=== PATIENT | female | born 1965 | race American Indian/Alaskan Native ===

== ENCOUNTER 2017-05-01 08:14 | Emergency (ER) | payer OTHER ==
[2017-05-01 09:05] VITALS: BP 149/86
--- NOTE | 2017-05-01 10:12 | Emergency Department Report ---
HPI - General Chief Complaint: Skin Rash Time Seen by Provider: 05/01/17 09:44 - HPI HPI: She is a 51-year-old female who presents with 3 other members of her home who presents to ED complaining of seen bedbugs in the periods at home 2 days ago. Patient states they have all been exposed to bedbugs and has some bites on the arms and legs. Patient states that there have gotten all sheets and beds turned from the house. She denies fevers or chills/nausea/vomiting or any other problem. ED Past Medical Hx - Past Medical History Previous Medical History?: Yes Hx Hypertension: Yes Hx Diabetes: Yes - Surgical History Past Surgical History?: Yes Additional Surgical History: Gastric bypass - Medications Home Medications: Home Medications Medication Instructions Recorded Confirmed Last Taken Type Hydrocortisone/Aloe Vera 1 applic TP TID #1 tube 05/01/17 Unknown Rx [Cortizone-10 1% Creme] Selenium Sulfide 1 applic TP DAILY #1 shampoo 05/01/17 Unknown Rx diphenhydrAMINE [Benadryl CAP] 25 mg PO QHS PRN #20 capsule 05/01/17 Unknown Rx ED Review of Systems ROS: Stated complaint: BED BUGS Other details as noted in HPI Constitutional: denies: chills, fever Eyes: denies: eye pain, eye discharge, vision change ENT: denies: ear pain, throat pain Respiratory: denies: cough, shortness of breath, wheezing Cardiovascular: denies: chest pain, palpitations Endocrine: no symptoms reported Gastrointestinal: denies: abdominal pain, nausea, diarrhea Genitourinary: denies: urgency, dysuria, discharge Musculoskeletal: denies: back pain, joint swelling, arthralgia Skin: pruritus. denies: rash, lesions Neurological: denies: headache, weakness, numbness, paresthesias, confusion Psychiatric: denies: anxiety, depression Hematological/Lymphatic: denies: easy bleeding, easy bruising Physical Exam - Physical Exam Vital Signs: Vital Signs 05/01/17 08:59 Temperature 98.1 F Pulse Rate 72 Respiratory 18 Rate Blood Pressure 149/86 O2 Sat by Pulse 99 Oximetry Physical Exam: GENERAL: Alert and oriented x3, no apparent distress, Normal Gait, atraumatic. HEAD: Head is normocephalic and a-traumatic. EYES: Extra ocular muscles are intact. Pupils are equal, round, and reactive to light and accommodation. NECK: Supple. Non edematous, No lymphadenopathy or thyromegaly. LUNGS: Symetrical with respiration, No wheezing, no rales or crackles, CTAB. HEART: S1, S2 present, regular rate and rhythm without murmur, no rubs, no gallops. Non tender to palpation EXTREMITIES/MUSCULOSKELETAL: No cyanosis, clubbing, rash, lesions or edema. NEUROLOGIC: The patient is cooperative with no focal neurologic deficits. SKIN: Multiple generalized moderately healed bite bates consistent with insect bites on extremities. Warm and dry, No lesions, No ulceration or induration present. ED Course Vital Signs 05/01/17 08:59 Temperature 98.1 F Pulse Rate 72 Respiratory 18 Rate Blood Pressure 149/86 O2 Sat by Pulse 99 Oximetry ED Medical Decision Making - Medical Decision Making 51-year-old female presents home infested of bedbugs ED course: Discussed with patient and call housemates to use medication prescriptions as prescribed. Discussed with a all members of the household to follow up with primary care physician in 3-5 days. This patient to get rid of all the bedding and beds washed the patient is in the house Discussed with patient's to have the house seeming gated and region of the bedbugs before going back in. Critical care attestation.: If time is entered above; I have spent that time in minutes in the direct care of this critically ill patient, excluding procedure time. ED Disposition Clinical Impression: Infestation by bed bug Disposition: DC-01 TO HOME OR SELFCARE Is pt being admited?: No Does the pt Need Aspirin: No Condition: Stable Instructions: Insect Bite or Sting (ED) Prescriptions: diphenhydrAMINE [Benadryl CAP] 25 mg PO QHS PRN #20 capsule PRN Reason: Itching Hydrocortisone/Aloe Vera [Cortizone-10 1% Creme] 1 applic TP TID #1 tube Selenium Sulfide 1 applic TP DAILY #1 shampoo Referrals: PRIMARY CARE, [Primary Care Provider] - 3-5 Days [facility] [Outside] - 3-5 Days [facility] [Outside] - 3-5 Days [facility] [Outside] - 3-5 Days Forms: Accompanied Note, Work/School Release Form(ED) Time of Disposition: 10:21
== END 2017-05-01 10:29 | disposition home or self-care (01) ==
LOC: ED 08:14
DX: S40.861A Insect bite (nonvenomous) of right upper arm, initial encounter (principal); S40.862A Insect bite (nonvenomous) of left upper arm, initial encounter; S80.862A Insect bite (nonvenomous), left lower leg, initial encounter; S80.861A Insect bite (nonvenomous), right lower leg, initial encounter; I10 Essential (primary) hypertension; E11.9 Type 2 diabetes mellitus without complications; W57.XXXA Bitten or stung by nonvenomous insect and other nonvenomous arthropods, initial encounter; Y93.89 Activity, other specified; Y92.89 Other specified places as the place of occurrence of the external cause; Y99.8 Other external cause status
CPT/HCPCS: 99282

== ENCOUNTER 2017-09-20 21:59 | Observation (INO) | payer MEDICAID, OTHER ==
[2017-09-20] MEDS ORDERED: ASPIRIN PO ONE (22:08)
[2017-09-20 22:46] LABS: Hematocrit 29.6 % (30.3-42.9); Hemoglobin 9.1 gm/dl (10.1-14.3); Mean Corpuscular HGB Conc 31 % (30-34); Mean Corpuscular Hemoglobin 22 pg (28-32); Mean Corpuscular Volume 71 fl (79-97); Platelet Count 224 K/mm3 (140-440); Red Blood Count 4.18 M/mm3 (3.65-5.03); Red Cell Distribution Width 17.7 % (13.2-15.2)
[2017-09-20 22:58] LABS: BUN/Creatinine Ratio 11; Blood Urea Nitrogen 8 mg/dL (7-17); Calcium 8.4 mg/dL (8.4-10.2); Hemolysis Index 30
[2017-09-20 23:14] LABS: Chol/HDL Ratio 2.35 %; HDL Cholesterol 82 mg/dL (40-59); LDL Cholesterol,Direct 102 mg/dL (50-130)
--- NOTE | 2017-09-21 00:36 | Emergency Department Report ---
ED Chest Pain HPI - General Chief Complaint: Chest Pain Stated Complaint: CHEST PAIN Time Seen by Provider: 09/21/17 00:15 Source: EMS Mode of arrival: Wheelchair Limitations: No Limitations - History of Present Illness Initial Comments: Progressive onset left-sided chest pain that she describes as pressure. It is associated with left arm cramping/numbness. It has been going on for the past 24 hours. Nonpleuritic, not positional, not affected by food. She has been trying to limit her activity to help calm the pain down. Never has had these symptoms before. Dad from heart attack. Smoker. Denies drug use. No history of DVT/PE. Her pain has worsened over the past 24 hours. Severity scale (0 -10): 7 - Related Data Previous Rx's Medication Instructions Recorded Last Taken Type Hydrocortisone/Aloe Vera 1 applic TP TID #1 tube 05/01/17 Unknown Rx [Cortizone-10 1% Creme] Selenium Sulfide 1 applic TP DAILY #1 shampoo 05/01/17 Unknown Rx diphenhydrAMINE [Benadryl CAP] 25 mg PO QHS PRN #20 capsule 05/01/17 Unknown Rx Allergies Allergy/AdvReac Type Severity Reaction Status Date / Time No Known Allergies Allergy Unverified 09/20/17 22:08 Heart Score - HEART Score History: Moderately suspicious EKG: Normal Age: 45-65 Risk factors: > 3 risk factors or hx of atherosclerotic disease Troponin: 1-3x normal limit HEART Score: 5 ED Review of Systems ROS: Stated complaint: CHEST PAIN Other details as noted in HPI Constitutional: denies: chills, fever Eyes: denies: eye pain, eye discharge, vision change ENT: denies: ear pain, throat pain Respiratory: shortness of breath. denies: cough, wheezing Cardiovascular: chest pain. denies: palpitations Endocrine: no symptoms reported Gastrointestinal: nausea. denies: abdominal pain, diarrhea Genitourinary: denies: urgency, dysuria, discharge Musculoskeletal: denies: back pain, joint swelling, arthralgia Skin: denies: rash, lesions Neurological: denies: headache, weakness, paresthesias Psychiatric: denies: anxiety, depression Hematological/Lymphatic: denies: easy bleeding, easy bruising ED Past Medical Hx - Past Medical History Hx Hypertension: Yes Hx Diabetes: Yes - Surgical History Additional Surgical History: Gastric bypass - Family History Family history: CAD/PA, vascular disease - Social History Smoking Status: Current Every Day Smoker Substance Use Type: None - Medications Home Medications: Home Medications Medication Instructions Recorded Confirmed Last Taken Type Hydrocortisone/Aloe Vera 1 applic TP TID #1 tube 05/01/17 Unknown Rx [Cortizone-10 1% Creme] Selenium Sulfide 1 applic TP DAILY #1 shampoo 05/01/17 Unknown Rx diphenhydrAMINE [Benadryl CAP] 25 mg PO QHS PRN #20 capsule 05/01/17 Unknown Rx ED Physical Exam - General Limitations: No Limitations General appearance: alert, in no apparent distress - Head Head exam: Present: atraumatic, normocephalic - Eye Eye exam: Present: normal appearance - ENT ENT exam: Present: mucous membranes moist - Neck Neck exam: Present: normal inspection - Respiratory Respiratory exam: Present: normal lung sounds bilaterally. Absent: respiratory distress - Cardiovascular Cardiovascular Exam: Present: regular rate, normal rhythm. Absent: systolic murmur, diastolic murmur, rubs, gallop - GI/Abdominal GI/Abdominal exam: Present: soft. Absent: tenderness - Extremities Exam Extremities exam: Present: normal inspection - Back Exam Back exam: Present: normal inspection - Neurological Exam Neurological exam: Present: alert, oriented X3 - Psychiatric Psychiatric exam: Present: normal affect, normal mood - Skin Skin exam: Present: warm, dry, intact, normal color. Absent: rash ED Course Vital Signs 09/20/17 09/20/17 09/20/17 22:24 23:40 23:46 Temperature 98.5 F Pulse Rate 76 69 Respiratory 18 10 L 14 Rate Blood Pressure 137/72 Blood Pressure 145/79 [Right] O2 Sat by Pulse 100 100 100 Oximetry ED Medical Decision Making - Lab Data Result diagrams: 09/20/17 22:11 09/20/17 22:11 - EKG Data -: EKG Interpreted by Me EKG shows normal: sinus rhythm, axis, intervals, QRS complexes, ST-T waves Rate: normal - EKG Data When compared to previous EKG there are: previous EKG unavailable Interpretation: no acute changes - Radiology Data Radiology results: image reviewed - Medical Decision Making 51-year-old female with past medical history of diabetes, hypertension that presents to the ER with chest pain. Patient with elevated heart score 5. EKGs shows only Q waves anteriorly. Chest x-rays unremarkable. Troponin is 0.034. Patient has been given aspirin. She has moderate to high risk for an ACS event. She will be admitted for further management. Patient is given nitroglycerin in the ER. I asked the hospitalist if he wanted me to start a heparin drip on the patient. He said not at this time. The patient will be admitted for further management. Critical Care Time: Yes Critical care time in (mins) excluding proc time.: 31 Critical care attestation.: If time is entered above; I have spent that time in minutes in the direct care of this critically ill patient, excluding procedure time. ED Disposition Clinical Impression: Non-ST elevation PA (NSTEMI) Disposition: DC-09 OP ADMIT IP TO THIS HOSP Is pt being admited?: Yes Does the pt Need Aspirin: No Condition: Stable Referrals: NILESH ARREAGA MD [Primary Care Provider] - 3-5 Days
--- NOTE | 2017-09-21 00:42 | XRay Report ---
FINAL REPORT PROCEDURE: XR CHEST ROUTINE 2V TECHNIQUE: PA and lateral chest radiographs were obtained. CPT 16448 HISTORY: chest pain COMPARISON: No prior studies are available for comparison. FINDINGS: Heart: Normal. Mediastinum/Vessels: Normal. Lungs/Pleural space: Normal. Bony thorax: No acute osseous abnormality. Other: IMPRESSION: Negative examination. If there is concern for rib injury plain films of the ribs may be helpful for further evaluation.
[2017-09-21] MEDS ORDERED: NITROSTAT SL PRN (00:59)
[2017-09-21] MEDS ORDERED: ASPIRIN ONE (01:33)
[2017-09-21] MEDS ORDERED: NITRO-BID 2% TP ONE (01:42)
[2017-09-21] MEDS ORDERED: TYLENOL PO ONE (01:42)
--- NOTE | 2017-09-21 02:55 | Event Note ---
Date: 09/21/17 See dictated H/P in reports Chest pain r/o LA protocol
[2017-09-21] MEDS ORDERED: TYLENOL PO PRN (02:58)
[2017-09-21] MEDS ORDERED: DILAUDID IV PRN (02:58)
[2017-09-21] MEDS ORDERED: PERCOCET 5/325 PO PRN (02:58)
[2017-09-21] MEDS ORDERED: ZOFRAN IV PRN (02:58)
[2017-09-21] MEDS ORDERED: SODIUM CHLORIDE FLUSH SYRINGE 10 ML IV PRN (02:58)
[2017-09-21] MEDS ORDERED: TYLENOL ONE (03:20)
[2017-09-21] MEDS ORDERED: HEPARIN 10,000 UNITS/10 ML IV ONE (04:12)
[2017-09-21 04:56] LABS: INR 0.93 (0.87-1.13)
[2017-09-21] MEDS ORDERED: HEPARIN/ 0.45% NACL-25,000 UNIT/500 ML 25,000 UNIT/500 ML BAG IV SCH (05:00)
--- NOTE | 2017-09-21 05:23 | History and Physical Report ---
CHIEF COMPLAINT: Left-sided chest pain since last night. HISTORY OF PRESENT ILLNESS: A 51-year-old -[place] female with a history of hypoglycemia attacks secondary to her gastric bypass surgery, comes in for left-sided chest pain, which she describes as pressure sensation. It is about 5 on a scale of 1-10, radiating to the left arm in the form of numbness. Started last night, not exacerbated by exertion, not relieved by rest. No history of DVT or pulmonary embolism. The patient apparently lost 337 pounds over the last few years after the gastric bypass surgery. The patient has a strong family history of coronary artery disease. Does not use any drugs. Smokes half a pack a day. No diaphoresis, no palpitations. PAST MEDICAL HISTORY: Significant for hypoglycemia, no diabetes, no hypertension. PAST SURGICAL HISTORY: Gastric bypass surgery. FAMILY HISTORY: Coronary artery disease and vascular disease. SOCIAL HISTORY: Current everyday smoker. CURRENT MEDICATIONS: None. REVIEW OF SYSTEMS: Significant for left-sided chest pressure sensation, associated with left arm numbness. Otherwise, review of systems is essentially negative. A 14-point review of systems done. PHYSICAL EXAMINATION: GENERAL: Middle-aged female, cooperative. VITAL SIGNS: Blood pressure 145/79 and 137/72, temperature is 98.5, pulse is 76, respirations are 18. HEENT: Unremarkable. Pupils are equal and reactive. NECK: Supple, no lymphadenopathy, no thyromegaly. LUNGS: Clear to auscultation and percussion. Good air entry. CARDIOVASCULAR: S1, S2 heard. No gallop, no murmur, no rub. Apical impulse in the left fifth intercostal space and midclavicular line. ABDOMEN: Soft and benign. No hepatosplenomegaly. No guarding, no rigidity. Hernial orifices are normal. EXTREMITIES: Good pedal pulses. No pedal edema. CENTRAL NERVOUS SYSTEM: Alert and oriented x 4, nonfocal exam. LABORATORY DATA: Sodium is 136, potassium is 4.3, chloride is 102.5, bicarbonate is 20, BUN and creatinine is 8 and 0.7, glucose is 90. H and H is 9.1 and 29.6. EKG shows normal sinus rhythm, normal axis, intervals, normal QRS complexes, nonspecific ST-T wave changes. Chest x-ray is unremarkable. Troponins are elevated. First two troponins are 0.036 and 0.051. HDL cholesterol is ____. ASSESSMENT AND PLAN: 1. Non-ST elevation myocardial infarction. The patient is started on IV heparin. Lexiscan not ordered. We will defer to Cardiology regarding CAT versus Lexiscan. 2. Hyponatremia, mild. Should correct with IV fluids. 3. Dyslipidemia actually HDL is high. The patient may not need statins. We will defer to Cardiology. 4. Obesity. The patient apparently lost 337 pounds, but still is overweight. Consult. 5. Deep venous thrombosis prophylaxis. The patient already on heparin. 6. GI prophylaxis, famotidine. JOB# [id number] [facility]
[2017-09-21 05:46] LABS: Hematocrit 27.4 % (30.3-42.9); Hemoglobin 8.4 gm/dl (10.1-14.3)
[2017-09-21] MEDS ORDERED: SODIUM CHLORIDE FLUSH SYRINGE 10 ML IV SCH (10:00)
[2017-09-21] MEDS: HABITROL TD SCH (10:09)
[2017-09-21] MEDS ORDERED: LEXISCAN IV ONE ×2 (10:44→10:46)
--- NOTE | 2017-09-21 11:48 | Consultation ---
History of Present Illness Consult date: 09/21/17 Medications and Allergies Allergies Allergy/AdvReac Type Severity Reaction Status Date / Time No Known Allergies Allergy Unverified 09/20/17 22:08 Home Medications Medication Instructions Recorded Confirmed Last Taken Type No Known Home Medications [No 09/21/17 09/21/17 Unknown History Reported Home Medications] Active Meds: Active Medications Acetaminophen (Tylenol) 650 mg PO Q4H PRN PRN Reason: Pain MILD(1-3)/Fever >100.5/TELLEZ Hydromorphone HCl (Dilaudid) 1 mg IV Q3H PRN PRN Reason: Pain , Severe (7-10) Morphine Sulfate (Morphine) 2 mg IV Q4H PRN PRN Reason: Pain, Moderate (4-6) Nicotine (Habitrol) 14 mg TD QDAY FE Last Admin: 09/21/17 10:09 Dose: 14 mg Nitroglycerin (Nitrostat) 0.4 mg SL .Q5MIN PRN PRN Reason: Chest Pain Last Admin: 09/21/17 01:48 Dose: 0.4 mg Ondansetron HCl (Zofran) 4 mg IV Q8H PRN PRN Reason: Nausea And Vomiting Oxycodone/Acetaminophen (Percocet 5/325) 1 tab PO Q6H PRN PRN Reason: Pain, Moderate (4-6) Sodium Chloride (Sodium Chloride Flush Syringe 10 Ml) 10 ml IV BID FE Sodium Chloride (Sodium Chloride Flush Syringe 10 Ml) 10 ml IV PRN PRN PRN Reason: LINE FLUSH Physical Examination Vital Signs Temp Pulse Resp BP Pulse Ox 98.5 F 76 18 145/79 100 09/20/17 22:24 09/20/17 22:24 09/20/17 22:24 09/20/17 22:24 09/20/17 22:24 Results 09/21/17 04:35 09/20/17 22:11 Coagulation 09/21/17 Range/Units 04:35 PT 12.9 (12.2-14.9) Sec. INR 0.93 (0.87-1.13) APTT 27.0 (24.2-36.6) Sec. Lipids 09/20/17 Range/Units 22:11 Triglycerides 95 (2-149) mg/dL Cholesterol 193 (50-199) mg/dL HDL Cholesterol 82 H (40-59) mg/dL Cholesterol/HDL Ratio 2.35 % CBC 09/20/17 09/21/17 Range/Units 22:11 04:35 WBC 5.4 (4.5-11.0) K/mm3 RBC 4.18 (3.65-5.03) M/mm3 Hgb 9.1 L 8.4 L (10.1-14.3) gm/dl Hct 29.6 L 27.4 L (30.3-42.9) % Plt Count 224 215 (140-440) K/mm3 Lymph # Senior Web Developer [place] # Senior Web Developer [place] # Senior Web Developer [place] # Senior Web Developer Comprehensive Metabolic Panel 09/20/17 Range/Units 22:11 Sodium 136 L (137-145) mmol/L Potassium 4.3 (3.6-5.0) mmol/L Chloride 102.5 (98-107) mmol/L Carbon Dioxide 20 L (22-30) mmol/L BUN 8 (7-17) mg/dL Creatinine 0.7 (0.7-1.2) mg/dL Glucose 90 (65-100) mg/dL Calcium 8.4 (8.4-10.2) mg/dL Assessment and Plan Detailed Cardiology consult dictated.
--- NOTE | 2017-09-21 14:01 | Event Note ---
Date: 09/21/17 Lexiscan MPI stress test is negative for ischemia, EF 69%. Malcolm KELLY NP / DR. KRISHNAMURTHY
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
[2017-09-21] MEDS: MORPHINE IV PRN (17:46)
--- NOTE | 2017-09-21 22:07 | Treadmill Report ---
KEYON STRESS NUCLEAR SCAN AGE: 51 SEX: Female REFERRING PHYSICIAN: Cosmo Parker MD DATE OF PROCEDURE: 09/21/2017 DESCRIPTION OF PROCEDURE: The patient received 10 mCi of technetium 99m Myoview intravenously under resting conditions. Resting myocardial perfusion scan was done. Subsequently, the patient underwent Lexiscan stress test as per the protocol. During Lexiscan stress, the patient received 29 mCi of technetium Myoview intravenously. After 30-60 minutes, post stress images were done. Computerized reconstruction images were performed for analysis. The post-stress images revealed uniform distribution of the radiopharmaceutical in the left ventricular myocardium. Gated study did not reveal any wall motion abnormality. The left ventricular ejection fraction was normal and was calculated to be 69%. The resting images also were normal. CONCLUSIONS: 1. Normal resting and stress myocardial perfusion scan images after the patient underwent Keyon Nuclear Stress Scan. 2. No wall motion abnormality. 3. Normal left ventricular ejection fraction of 69%. JOB# [id number] [facility]/NTS
[2017-09-21] MEDS ORDERED: AMBIEN PO ONE (22:09)
--- NOTE | 2017-09-21 22:52 | Event Note ---
Date: 09/21/17 PATIENT SEEN and examined in no worsening acute distress. Reports chest pain radiating to right shoulder but improving. stress test result reviewed and no acute pathology noted. Anticipate discharge in af remains clinically stable
[2017-09-21] MEDS: MILK OF MAGNESIA PO PRN (23:00)
[2017-09-22 05:16] VITALS: BP 123/75
[2017-09-22 06:57] LABS: Basophils # (Auto) 0.1 K/mm3 (0.0-0.1); Basophils % (Auto) 1.4 % (0.0-1.8); Eosinophils # (Auto) 0.2 K/mm3 (0.0-0.4); Eosinophils % (Auto) 4.2 % (0.0-4.3); Hematocrit 26.8 % (30.3-42.9); Hemoglobin 8.1 gm/dl (10.1-14.3); Lymphocytes # (Auto) 1.7 K/mm3 (1.2-5.4); Lymphocytes % (Auto) 37.3 % (13.4-35.0); Mean Corpuscular HGB Conc 30 % (30-34); Mean Corpuscular Hemoglobin 22 pg (28-32); Mean Corpuscular Volume 71 fl (79-97); Monocytes # (Auto) 0.4 K/mm3 (0.0-0.8); Monocytes % (Auto) 9.8 % (0.0-7.3); Platelet Count 209 K/mm3 (140-440); Red Blood Count 3.78 M/mm3 (3.65-5.03); Red Cell Distribution Width 17.5 % (13.2-15.2)
[2017-09-22 07:11] LABS: Alanine Aminotransferase 9 units/L (7-56); Albumin 3.6 g/dL (3.9-5); BUN/Creatinine Ratio 18; Blood Urea Nitrogen 11 mg/dL (7-17); Calcium 8.6 mg/dL (8.4-10.2); Hemolysis Index 1
[2017-09-22] MEDS: MILK OF MAGNESIA PO PRN (08:55)
[2017-09-22] MEDS: HABITROL TD SCH (09:00)
[2017-09-22] MEDS: MORPHINE IV PRN (09:27)
--- NOTE | 2017-09-22 12:44 | Discharge Summary ---
Providers - Providers Date of Admission: 09/21/17 02:58 Date of discharge: 09/22/17 Attending physician: JUANIS LAWTON 09/21/17 02:58 Consult to Physician [CONS] Routine Comment: Consulting Provider: ATUL RM Physician Instructions: Reason For Exam: NSTEMI Primary care physician: NILESH ARREAGA Hospitalization Condition: Good Pertinent studies: Lexiscan negative echocardiogram ejection fraction 69%. Hospital course: Patient presented atypical chest pain. To the right side most likely associated with gas symptoms and gastritis. Has resolved. Patient chest pain- free. Disposition: - TO HOME OR SELFCARE - Discharge Diagnoses (1) Chest pain Status: Acute Comment: Patient with atypical chest pain. Normal Lexiscan echocardiogram ejection fraction 69%. Chest pain-free. Stable for discharge. (2) Morbid obesity Status: Acute Comment: Patient is status post gastric bypass chronic constipation. Patientabout G Ms. stable to go home and use of bathroom at her home when she is used to. (3) Hypertension Status: Acute Comment: Well-controlled continue current medical management. Core Measure Documentation - Palliative Care Palliative Care/ Comfort Measures: Not Applicable - Core Measures Any of the following diagnoses?: none Exam - Constitutional Vitals: Temp Pulse Resp BP Pulse Ox 98.1 F 69 20 123/75 100 09/22/17 04:38 09/22/17 04:38 09/22/17 09:27 09/22/17 04:38 09/22/17 04:38 General appearance: Present: no acute distress, well-nourished - EENT Eyes: Present: PERRL ENT: hearing intact, clear oral mucosa - Neck Neck: Present: supple, normal ROM - Respiratory Respiratory effort: normal Respiratory: bilateral: CTA - Cardiovascular Heart Sounds: Present: S1 & S2. Absent: rub, click - Extremities Extremities: pulses symmetrical, No edema Peripheral Pulses: within normal limits - Abdominal General gastrointestinal: Present: soft, non-tender, non-distended, normal bowel sounds Female genitourinary: Present: normal - Integumentary Integumentary: Present: clear, warm, dry - Musculoskeletal Musculoskeletal: gait normal, strength equal bilaterally - Psychiatric Psychiatric: appropriate mood/affect, intact judgment & insight - Neurologic Neurologic: CNII-XII intact, moves all extremities Plan Activity: no restrictions Weight Bearing Status: Weight Bear as Tolerated Diet: low fat Follow up with: NILESH ARREAGA MD [Primary Care Provider] - 3-5 Days
== END 2017-09-22 13:41 | disposition home or self-care (01) ==
LOC: ED 21:59 → 4A 09-21 02:58 → INTOOBSV 09-21 02:58
PROVIDERS: ADMIT Internal Medicine; ATTEND Internal Medicine
DX: I21.4 Non-ST elevation (NSTEMI) myocardial infarction (principal); E87.1 Hypo-osmolality and hyponatremia; E78.5 Hyperlipidemia, unspecified; E66.9 Obesity, unspecified; Z68.35 Body mass index [BMI] 35.0-35.9, adult; Z82.49 Family history of ischemic heart disease and other diseases of the circulatory system; Z79.899 Other long term (current) drug therapy
CPT/HCPCS: 36415; 71046; 78452; 80048; 80053; 80061; 82962; 83036; 84439; 84443; 84484; 85014; 85018; 85025; 85049; 85520; 85610; 85730; 93005; 93010; 93017; 93306; 96374; 96375; 96376; 99291; A9502; G0378; J1170; J1644; J2270; J2405; J2785

== ENCOUNTER 2018-01-23 14:15 | Emergency (ER) | payer MEDICAID ==
[2018-01-23] MEDS ORDERED: CARAFATE PO ONE (15:06)
[2018-01-23] MEDS ORDERED: PEPCID PO ONE (15:06)
[2018-01-23] MEDS ORDERED: ALUM-MAG HYDROX-SIMETH 200-200-20MG/5ML PO ONE (15:06)
--- NOTE | 2018-01-23 15:07 | Emergency Department Report ---
ED Chest Pain HPI - General Chief Complaint: Chest Pain Stated Complaint: CHEST PAIN Time Seen by Provider: 01/23/18 14:51 Source: patient, RN notes reviewed Mode of arrival: Ambulatory Limitations: No Limitations - History of Present Illness Initial Comments: This is a 52-year-old female who is not known to this provider previously. He has a past medical history of bariatric surgery, chronic iron deficiency anemia , iron iron infusions, history of obesity, recently admitted to this hospital for chest pain workup in October, patient had a cardiac catheterization in October 2017 , which demonstrated normal angiographic coronary arteries. Patient presents to the ER today with a complaint of chest pain. The chest pain is in the anterior right and left chest. It does not radiate to the back, arms and neck. There is no vomiting or diaphoresis. It is not exertional. There is no posterior leg pain or leg swelling, the patient denies oral contraceptives, indicates no recent aspirin use, indicates no recent cocaine use. The pain does not have exacerbating or relieving factors. It does not radiate anywhere. MD Complaint: chest pain -: Gradual, This morning (pain started at 11:00 in the morning) Pain Location: left chest, right chest Pain Radiation: none Severity scale (0 -10): 5 Quality: tightness, pressure Consistency: intermittent Improves With: nothing, eating re: denies: nausea, vomting, diaphoresis, dyspnea, sense of impending doom Aspirin use within the Past 7 Days: (0) No - Related Data On Oral Contraceptives: No Previous Rx's Medication Instructions Recorded Last Taken Type Nicotine [Habitrol] 14 mg TD QDAY #30 patch 10/30/17 Unknown Rx Famotidine [Pepcid] 20 mg PO BID #60 tablet 01/23/18 Unknown Rx Allergies Allergy/AdvReac Type Severity Reaction Status Date / Time loxapine Allergy Angioedema Verified 10/29/17 10:45 Heart Score - HEART Score History: Slightly suspicious EKG: Normal Age: 45-65 Risk factors: 1-2 risk factors Troponin: < normal limit HEART Score: 2 - Critical Actions Critical Actions: 0-3 pts:0.9-1.7%risk of adverse cardiac event.Candidate for discharge ED Review of Systems ROS: Stated complaint: CHEST PAIN Other details as noted in HPI Comment: All other systems reviewed and negative ED Past Medical Hx - Past Medical History Hx Hypertension: Yes Hx Heart Attack/AMI: Yes Hx Congestive Heart Failure: No Hx Diabetes: No Hx Asthma: No Hx COPD: No - Surgical History Additional Surgical History: Gastric bypass - Social History Smoking Status: Current Every Day Smoker - Medications Home Medications: Home Medications Medication Instructions Recorded Confirmed Last Taken Type Nicotine [Habitrol] 14 mg TD QDAY #30 patch 10/30/17 Unknown Rx Famotidine [Pepcid] 20 mg PO BID #60 tablet 01/23/18 Unknown Rx ED Physical Exam - General Limitations: No Limitations General appearance: alert, in no apparent distress - Head Head exam: Present: atraumatic, normocephalic - Eye Eye exam: Present: normal appearance, EOMI. Absent: nystagmus - ENT ENT exam: Present: normal exam, normal orophraynx, mucous membranes moist. Absent: normal external ear exam - Neck Neck exam: Present: normal inspection, full ROM - Respiratory Respiratory exam: Present: normal lung sounds bilaterally, chest wall tenderness. Absent: respiratory distress - Cardiovascular Cardiovascular Exam: Present: regular rate, normal rhythm, normal heart sounds. Absent: bradycardia, tachycardia, irregular rhythm, systolic murmur, diastolic murmur, rubs, gallop - GI/Abdominal GI/Abdominal exam: Present: soft, normal bowel sounds. Absent: distended, tenderness, guarding, rebound, rigid, pulsatile mass - Extremities Exam Extremities exam: Present: normal inspection, full ROM, normal capillary refill , other (2+ pulses noted in the bilateral upper, lower extremities. Compartments soft. No long bony tenderness. The pelvis is stable.). Absent: tenderness, pedal edema, joint swelling, calf tenderness - Back Exam Back exam: Present: normal inspection, full ROM. Absent: tenderness, CVA tenderness (R), paraspinal tenderness, vertebral tenderness - Neurological Exam Neurological exam: Present: alert, oriented X3, CN II-XII intact, normal gait, other (Extraocular movements intact. Tongue midline. No facial droop. Facial sensation intact to light touch in the V1, V2, V3 distribution bilaterally. 5 and 5 strength in 4 extremities.. Sensation is intact to light touch in 4 extremities.). Absent: motor sensory deficit - Psychiatric Psychiatric exam: Present: normal affect, normal mood - Skin Skin exam: Present: warm, dry, intact, normal color. Absent: rash ED Course Vital Signs 01/23/18 14:55 Temperature 98.1 F Pulse Rate 74 Respiratory 14 Rate Blood Pressure 143/71 [Left] O2 Sat by Pulse 100 Oximetry - Reevaluation(s) Reevaluation #1: 01/23/18 16:59 The patient also endorses that she ate some spicy foods around the time her chest pain started, and she thinks that her pain got worse after she finished eating the aforementioned spicy food TIMMY score - Timmy Score Age > 65: (0) No Aspirin use within the Past 7 Days: (1) Yes 3 or more CAD Risk Factors: (0) No 2 or more Angina events in past 24 hrs: (0) No Known CAD with more than 50% Stenosis: (0) No Elevated Cardiac Markers: (0) No ST Deviation Greater than 0.5mm: (0) No TIMMY Score: 1 ED Medical Decision Making - Lab Data Result diagrams: 01/23/18 15:14 01/23/18 15:21 Vital Signs 01/23/18 14:55 Temperature 98.1 F Pulse Rate 74 Respiratory 14 Rate Blood Pressure 143/71 [Left] O2 Sat by Pulse 100 Oximetry Lab Results 01/23/18 01/23/18 01/23/18 Range/Units 15:14 15:14 15:19 WBC 3.7 L (4.5-11.0) K/mm3 RBC 3.53 L (3.65-5.03) M/mm3 Hgb 7.1 L (10.1-14.3) gm/dl Hct 23.5 L (30.3-42.9) % MCV 67 L (79-97) fl MCH 20 L (28-32) pg MCHC 30 (30-34) % RDW 19.0 H (13.2-15.2) % Plt Count 213 (140-440) K/mm3 PT 14.5 (12.2-14.9) Sec. INR 1.07 (0.87-1.13) APTT 25.2 (24.2-36.6) Sec. D-Dimer 168.09 (0-234) ng/mlDDU Sodium (137-145) mmol/L Potassium (3.6-5.0) mmol/L Chloride (98-107) mmol/L Carbon Dioxide (22-30) mmol/L Anion Gap mmol/L BUN (7-17) mg/dL Creatinine (0.7-1.2) mg/dL Estimated GFR ml/min BUN/Creatinine Ratio % Glucose (65-100) mg/dL Calcium (8.4-10.2) mg/dL Total Bilirubin (0.1-1.2) mg/dL AST (5-40) units/L ALT (7-56) units/L Alkaline Phosphatase (35-129) units/L Troponin T < 0.010 (0.00-0.029) ng/mL Total Protein (6.3-8.2) g/dL Albumin (3.9-5) g/dL Albumin/Globulin Ratio % Lipase (13-60) units/L //18 Range/Units 15:21 WBC (4.5-11.0) K/mm3 RBC (3.65-5.03) M/mm3 Hgb (10.1-14.3) gm/dl Hct (30.3-42.9) % MCV (79-97) fl MCH (28-32) pg MCHC (30-34) % RDW (13.2-15.2) % Plt Count (140-440) K/mm3 PT (12.2-14.9) Sec. INR (0.87-1.13) APTT (24.2-36.6) Sec. D-Dimer (0-234) ng/mlDDU Sodium 136 L (137-145) mmol/L Potassium 4.0 (3.6-5.0) mmol/L Chloride 104.4 (98-107) mmol/L Carbon Dioxide 21 L (22-30) mmol/L Anion Gap 15 mmol/L BUN 8 (7-17) mg/dL Creatinine 0.5 L (0.7-1.2) mg/dL Estimated GFR > 60 ml/min BUN/Creatinine Ratio 16 % Glucose 93 (65-100) mg/dL Calcium 8.4 (8.4-10.2) mg/dL Total Bilirubin 0.20 (0.1-1.2) mg/dL AST 15 (5-40) units/L ALT < 5 L (7-56) units/L Alkaline Phosphatase 75 (35-129) units/L Troponin T < 0.010 (0.00-0.029) ng/mL Total Protein 6.7 (6.3-8.2) g/dL Albumin 3.7 L (3.9-5) g/dL Albumin/Globulin Ratio 1.2 % Lipase 18 (13-60) units/L - EKG Data -: EKG Interpreted by Me EKG shows normal: sinus rhythm, axis, intervals, QRS complexes, ST-T waves - EKG Data When compared to previous EKG there are: no significant change Interpretation: no acute changes 01/23/18 16:57 EKG #1 shows normal sinus, 73 bpm, normal axis, normal intervals, non-STEMI, low voltage in the lateral leads, appears unchanged when compared to prior from 10/29/2017 as a T-wave inversion in lead 3. This is unchanged. Flat T waves in aVF. This is also unchanged. - Radiology Data Radiology results: report reviewed, image reviewed X-ray of the chest is negative for acute disease - Medical Decision Making Differential diagnosis, including not limited to:, Gastritis, hiatal hernia, GI- related chest pain, pulmonary embolus, acute coronary syndrome, pericarditis, myocarditis Assessment and plan: 52-year-old female with chest pain. The patient recently had a cardiac risk stratification within the past 6 months. She had a clean cardiac catheterization. EKG unchanged 2. Troponin unchanged 2. Low risk by TIMMY score, heart score, low risk by well's criteria, also has a negative d- dimer. Patient at low risk for major adverse cardiac event. Her pain was treated with nonnarcotic intervention. She can follow up with an outpatient primary care doctor or pest controller assistant. Of note, she has a chronic microcytic anemia which is not symptomatic, she recently had an iron infusion, she denies vomiting, hematemesis and bright red blood per rectum. She declined a rectal examination. Critical care attestation.: If time is entered above; I have spent that time in minutes in the direct care of this critically ill patient, excluding procedure time. ED Disposition Clinical Impression: Chest pain, Microcytic anemia Disposition: - TO HOME OR SELFCARE Is pt being admited?: No Does the pt Need Aspirin: No Condition: Stable Instructions: Chest Pain (ED) Additional Instructions: Continue current outpatient medications. Decrease/avoid consumption of heavy, spicy foods. Take the pain medication as needed. Avoid consumption of Motrin, ibuprofen, Naprosyn, Aleve, NSAIDs. Follow up with her primary care doctor or pest controller assistant within 7-10 days. Return to the ER right away with new pain, worsened pain, migration of pain, projectile vomiting, change in mental status, confusion, inability to tolerate liquid feedings. Referrals: PRIMARY CARE, [Primary Care Provider] - 3-5 Days [facility] [Provider Group] - 3-5 Days [facility] [Provider Group] - 3-5 Days
[2018-01-23 15:29] LABS: Hematocrit 23.5 % (30.3-42.9); Hemoglobin 7.1 gm/dl (10.1-14.3); Mean Corpuscular HGB Conc 30 % (30-34); Platelet Count 213 K/mm3 (140-440); Red Blood Count 3.53 M/mm3 (3.65-5.03)
[2018-01-23 15:35] LABS: Mean Corpuscular Hemoglobin 20 pg (28-32); Mean Corpuscular Volume 67 fl (79-97)
[2018-01-23 15:39] LABS: INR 1.07 (0.87-1.13)
[2018-01-23 15:40] LABS: Partial Thromboplastin Time 25.2 Sec. (24.2-36.6)
[2018-01-23 15:43] LABS: Albumin 3.7 g/dL (3.9-5); BUN/Creatinine Ratio 16; Blood Urea Nitrogen 8 mg/dL (7-17); Calcium 8.4 mg/dL (8.4-10.2); Hemolysis Index 3; Lipase 18 units/L (13-60)
[2018-01-23 15:44] LABS: Alanine Aminotransferase < 5 units/L (7-56)
--- NOTE | 2018-01-23 16:32 | XRay Report ---
FINAL REPORT EXAM: XR CHEST ROUTINE 2V HISTORY: Chest Pain TECHNIQUE: Frontal and lateral chest x-ray. PRIORS: 29 Oct 2017. FINDINGS: Cardiac and mediastinal silhouette within normal limits. Lungs are normally expanded, without significant vascular congestion. No focal consolidation, pleural effusion or apparent pneumothorax. Bony thorax without acute abnormality. IMPRESSION: 1. No acute findings.
[2018-01-23 17:51] VITALS: BP 129/74
== END 2018-01-23 18:03 | disposition home or self-care (01) ==
LOC: ED 14:15
DX: R07.89 Other chest pain (principal); D50.9 Iron deficiency anemia, unspecified; I10 Essential (primary) hypertension; I25.2 Old myocardial infarction; F17.200 Nicotine dependence, unspecified, uncomplicated; Z88.8 Allergy status to other drugs, medicaments and biological substances
CPT/HCPCS: 36415; 71046; 80053; 83690; 84484; 85027; 85379; 85610; 85730; 93005; 93010; 99284